=== PATIENT | male | born 1980 | race American Indian/Alaskan Native ===

== ENCOUNTER → 2024-07-11 | Outpatient (CLI) | payer MEDICAID, SELFPAY ==
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
== END | disposition home or self-care (01) ==
LOC: SMRI 07-13 07:58
PROVIDERS: PCP Physician Assistant; Referring Provider Internal Medicine; Visit Provider Internal Medicine
DX: M51.34 Other intervertebral disc degeneration, thoracic region (principal); M51.24 Other intervertebral disc displacement, thoracic region
CPT/HCPCS: 72146

== ENCOUNTER 2024-07-13 09:00 | Outpatient (RCR) | payer MEDICAID, SELFPAY ==
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
--- NOTE | 2024-06-28 11:43 | PT.ODAYNRPT ---
PT Outpatient Daily Note OP Daily Note Outpatient Physical Therapy Treatment Date: 06/28/24 Visit Reasons: Thoracic spine Subjective: Pt's mid back pain is about the same. Objective: Please see flow chart for list of ther ex performed Assessment: Post STM decrease tone in the T2-T5 region. Minimal change in pain reported Plan: Continue with PT Length of Time (minutes) of Treatment: 30 Minutes Procedure Charges Therapeutic Exercise 30 minutes: Yes
--- NOTE | 2024-06-30 11:52 | PT.ODAYNRPT ---
PT Outpatient Daily Note OP Daily Note Outpatient Physical Therapy Treatment Date: 06/30/24 Visit Reasons: Thoracic spine Subjective: Pt's back wasnt too sore after last session. Pt mentioned he felt good post PT session Objective: Please see flow chart for list of ther ex performed Assessment: tolerate exercises added more scapula strengthening exercises with less pain reported Plan: Continue with PT Length of Time (minutes) of Treatment: 30 Minutes Procedure Charges Therapeutic Exercise 30 minutes: Yes
--- NOTE | 2024-07-05 13:09 | PT.ODAYNRPT ---
PT Outpatient Daily Note OP Daily Note Outpatient Physical Therapy Treatment Date: 07/05/24 Visit Reasons: Thoracic spine Subjective: Pt reports back is doing ok, no other complaints. Objective: Please see flow sheet for ther ex list. Assessment: Added interventions for thoracic mobility completed with good tolerance. Plan: Continue with POC. Length of Time (minutes) of Treatment: 30 Minutes Procedure Charges Therapeutic Exercise 30 minutes: Yes
--- NOTE | 2024-07-07 09:54 | PT.ODAYNRPT ---
PT Outpatient Daily Note OP Daily Note Outpatient Physical Therapy Treatment Date: 07/07/24 Visit Reasons: Thoracic spine Subjective: Pt mentioned open book cause his mid back to be slightly irritated post last session. Pain did not last long Objective: Please see flow chart for list of ther ex performed Assessment: patient encouraged to continue exercises in therapy session due to goal of open book exercise is to restore mobility in the target t/s region. Pt gave verbal consent and understanding Plan: Continue with PT Length of Time (minutes) of Treatment: 30 Minutes Procedure Charges Therapeutic Exercise 30 minutes: Yes
--- NOTE | 2024-07-13 13:40 | PT.ODAYNRPT ---
PT Outpatient Daily Note OP Daily Note Outpatient Physical Therapy Treatment Date: 07/13/24 Visit Reasons: Thoracic spine Subjective: Pt's mid back feels okay. No new concerns to report. Objective: Please see flow chart for list of ther ex performed Assessment: tolerate exercises with minimal pain Plan: Continue with PT Length of Time (minutes) of Treatment: 30 Minutes Procedure Charges Therapeutic Exercise 30 minutes: Yes
== END 2024-07-14 23:59 | disposition home or self-care (01) ==
LOC: CPTX 09:00
PROVIDERS: PCP Physician Assistant; Referring Provider Physician Assistant; Visit Provider Physician Assistant
DX: M54.6 Pain in thoracic spine (principal); G89.29 Other chronic pain
CPT/HCPCS: 97110; 97162

== ENCOUNTER 2024-08-03 09:00 | Outpatient (RCR) | payer MEDICAID, SELFPAY ==
--- NOTE | 2024-07-19 09:15 | PT.ODAYNRPT ---
PT Outpatient Daily Note OP Daily Note Outpatient Physical Therapy Treatment Date: 07/19/24 Visit Reasons: back pain Subjective: Pt reports back is doing ok, no pain to report at this time. Objective: Please see flow sheet for ther ex list. Assessment: Pt instructed on light scapulothoracic strengthening, pt denies pain with exercise. Plan: Continue with POC. Length of Time (minutes) of Treatment: 30 Minutes Procedure Charges Therapeutic Exercise 30 minutes: Yes
--- NOTE | 2024-07-21 10:54 | PT.ODAYNRPT ---
PT Outpatient Daily Note OP Daily Note Outpatient Physical Therapy Treatment Date: 07/21/24 Visit Reasons: back pain Subjective: Pt's mid back is a little better. No new concerns to report and agree to continue physicla therapy. Objective: Please see flow chart for list of ther ex performed Assessment: tolerate exercises with minimal pain Plan: Continue with PT Length of Time (minutes) of Treatment: 30 Minutes Procedure Charges Therapeutic Exercise 30 minutes: Yes
--- NOTE | 2024-07-26 14:08 | PT.ODAYNRPT ---
PT Outpatient Daily Note OP Daily Note Outpatient Physical Therapy Treatment Date: 07/26/24 Visit Reasons: back pain Subjective: No new complaints to offer. Objective: Please see flow sheet for ther ex list. Assessment: Pt demonstrates good tolerance with light scapulothoracic strengthening. Plan: Continue with POC. Length of Time (minutes) of Treatment: 30 Minutes Procedure Charges Therapeutic Exercise 30 minutes: Yes
--- NOTE | 2024-08-01 12:56 | PT.ODAYNRPT ---
PT Outpatient Daily Note OP Daily Note Outpatient Physical Therapy Treatment Date: 08/01/24 Visit Reasons: back pain Subjective: Pt's back is better. Pt does not have much concerns to report. Objective: Please see flow chart for list of ther ex performed Assessment: tolerate exercises with minimal pain; added more t/s stretch with good tolerance Plan: Continue with PT Length of Time (minutes) of Treatment: 30 Minutes Procedure Charges Therapeutic Exercise 30 minutes: Yes
--- NOTE | 2024-08-03 09:15 | PT.ODS1RPT ---
PT OP Progress/Discharge Note Date of Service: 08/03/24 Progress Note/DC Note Progress Note/Discharge Note: DC Note Patient Information Visit Reasons: back pain Medical Diagnosis: M54.6 Treatment Dx #1: Mid Back Pain Service Discharge Date: 08/03/24 Status Subjective: Pt's mid back has been better, however, still has lingering pain intermittently. Pt has been able to resume ADLs, chores, and recreational activities with limitation. Pt stopped landscaping due to pain. Objective: T/S AROM: all motions are WFL Scapula MMTs: grossly 3+/5 BUE AROM: all motions are WNL BUE MMTs: grossly 4-/5 Assessment: Pt has improved with overall t/s mobility, however, continues to have intermittent pain with certain activities. Pt will no longer benefit from physical therapy due to plateau towards goals. Pt advised to follow up with provider for further consultation; thank you for your referrals. Plan: D/C home and follow up with MD BONILLA Procedure Charges Therapeutic Exercise 30 minutes: Yes
== END 2024-08-11 23:59 | disposition home or self-care (01) ==
LOC: CPTX 09:00
PROVIDERS: PCP Physician Assistant; Referring Provider Physician Assistant; Visit Provider Physician Assistant
DX: M54.6 Pain in thoracic spine (principal); G89.29 Other chronic pain
CPT/HCPCS: 97110